=== PATIENT | female | born 1960 | race Caucasian/White ===

== ENCOUNTER → 2016-07-26 | Outpatient (CLI) | payer BC ==
[~2016-07-26] VITALS: Ht 172.7 cm; Wt 62.4 kg
[~2016-07-26] MED LIST: ADRENAL COMPLEX PO; ATIVAN1 MG PO; CALCIUM 500 +1 EAC5 PO; FISH OIL 1,001000 M1 PO; GLUCOSAMINE HC500 MG PO; LAMOTRIGINE150 MG PO; MAGOX 400400 MG PO; NEPHROCAPS SOFT1 CAP PO; PROBIOTIC1 EAC1 PO; TRAMADOL 50 MG50 MG PO; TRAZODONE HCL50 MG PO; ULTRAM 50MG TAB50 MG PO; VITAMIN B-12500 MCG PO; VITAMIN D2000 UNIT PO; VITAMIN E1000 UNI3 PO; ZIPRASIDONE HCL40 MG PO; [UNRECOGNIZED DRUG - OTHER] PO; [UNRECOGNIZED DRUG - OTHER] PO
--- NOTE | ~2016-07-26 | HPC ---
[facility] [place] [address] PAIN MANAGEMENT CONSULTATION Name: SARAH JAMISON Room #: REG CL M.Neymar.#: [id number] Admission: 07/26/16 Attend Phys: Brain Chester DO Discharge: Date of : 60 Report #: [id number] THIS REPORT FOR: //name// CC: HARRIET Smith MD DATE OF SERVICE: 07/26/2016 DATE OF SERVICE: 07/26/2016 CHIEF COMPLAINT: Right buttock and anterior groin and anterior thigh pain. HISTORY OF PRESENT ILLNESS: As you know, the patient is a 56-year-old female referred to our clinic to trial SI joint injections as a right hip injections by Dr. Smith were ineffective. Unfortunately, the patient received no benefit with the SI joint injection provided at the last visit. She returns today in followup visit reporting pain score 3/10. I did indicate to the patient today that she was reporting 100% improvement in overall pain. Upon discharge from our clinic, she states she received no improvement in symptoms. She states her pain is at its typical level. She returns today in followup visit to discuss treatment options. She is quite emotionally labile today, as her symptoms have not been resolved nor has a cause for her symptoms being elucidated. The patient was referred by her orthopedic surgeon to our clinic to trial this SI joint injection. ALLERGIES: No known drug allergies. CURRENT MEDICATIONS: Tramadol 50 mg p.r.n., Blackcurrant 1 tab per day, organic bound mineral 1 tab per day, glucosamine chondroitin 500 mg once a day, cyanocobalamin 500 mcg per day, cholecalciferol 2000 units per day, calcium carbonate 1 tab per day, magnesium 400 mg once a day, lactobacillus 1 tab per day, omega-3 fish oil 1 tab per day, lorazepam 1 mg twice a day, trazodone 50 mg p.o. at bedtime, lamotrigine 150 mg 2 tabs p.o. at bedtime. SOCIAL HISTORY: The patient continues to smoke 1 pack of tobacco per day and has done so for years. Denies IV or illicit drug use. Denies any chronic alcohol use. She is unaccompanied today. IMAGING: No new imaging available. PHYSICAL EXAMINATION: VITAL SIGNS: Blood pressure 94/56, pulse 72, respiratory rate 16, unlabored. The patient 99% on room air. Height 5 feet 8 inches tall, weight 137 pounds, BMI calculated 20.9. [facility] [address] [place] [address] PAIN MANAGEMENT CONSULTATION Name: SARAH JAMISON Room #: REG [facility]#: [id number] Admission: 07/26/16 Attend Phys: Brain Chester DO Discharge: Date of : 60 Report #: [id number] GENERAL: Well-developed, well-nourished, well-hydrated, thin 56-year-old female, smells strongly of tobacco smoke, placing current pain score 3/10. HEENT: Normocephalic, atraumatic. Pupils equal, round, reactive to light. Extraocular muscles are intact. Sclerae are nonicteric. No petechiae. EXTREMITIES: Show no clubbing, no cyanosis, no edema. MUSCULOSKELETAL: Palpatory tenderness is noted again over the right sacroiliac joint. Deep palpation intensifies the patient's pain. Seated straight leg raising negative. Supine straight leg raising negative. Veronica test is negative for any intrinsic hip pathology. Modified Gaenslen's positive for some axial low back pain. ASSESSMENT: 1. Right sacroiliac joint pain. 2. Myofascial pain. 3. Chronic intractable pain. PLAN: 1. The patient returns today in followup visit indicating no improvement in symptoms with the SI joint injection provided at last visit. I did indicate to the patient today that prior to her discharge, she was reporting pain score 0/10. This would indicate there is a possibility that the SI joint is the source of the patient's symptoms and the fact that she did not receive long-term benefit but indicate that she might be a candidate for fusion. I advised the patient at this time, we at [facility] do not provide fusions of the SI joints. She would need to return to see her orthopedic surgeon, Dr. Smith for this process. I recommend strongly the patient return to see Dr. Smith in regards to this fusion process. The fact the patient did receive initial benefit, but no long-term effects would indicate SI joint is the likely source of the patient's symptoms, given the 0/10 score before leaving our clinic after the SI joint procedure. Currently, the lateral branch radiofrequency lesioning that was done on SI joints is classified as an experimental technique and this is no longer offered to the patient. She will need to look for fusion through her orthopedic surgeon's services. Have recommend the patient return to see Dr. Smith as quickly as possible to discuss this option. 2. I have provided the patient with a refill of her tramadol 50 mg dose 1 tab p.o. t.i.d. I have given the patient #90 tablets, 2 refills, which is 3 months worth of medications to give the patient more time to return to see Dr. Smith about the fusion procedure. 3. We will be returning the patient's care to Dr. Smith, the referring physician who requested the SI joint injections. It is unfortunate the patient does not feel she received benefit though she did indicate good improvement initially. She will need to seek a possible fusion through [facility]. <ELECTRONICALLY SIGNED> By: Brain Chester DO 07/27/16 [id number] Brain Chester DO /nt
[2016-07-26 08:15] VITALS: BP 94/56
== END | disposition home or self-care (01) ==
LOC: PAIN 07:10
DX: M53.3 Sacrococcygeal disorders, not elsewhere classified (principal); M79.1 Myalgia; G89.29 Other chronic pain

== ENCOUNTER → 2016-11-23 | Outpatient (CLI) | payer BC ==
[~2016-11-23] VITALS: Ht 172.7 cm; Wt 60.0 kg
[~2016-11-23] MED LIST changes: +DICLOFENAC SOD50 M1 PO
--- NOTE | ~2016-11-23 | HPC ---
[facility] [place] [address] PAIN MANAGEMENT CONSULTATION Name: SARAH JAMISONLEEN Room #: REG [facility] Dank#: [id number] Admission: 11/23/16 Attend Phys: Brain Chester DO Discharge: Date of : 60 Report #: [id number] THIS REPORT FOR: //name// CC: HARRIET Chester Luis RAMIREZ DATE OF SERVICE: 11/23/2016 DATE OF SERVICE: 11/23/2016 CHIEF COMPLAINT: Right hip pain, low back pain, generalized body pain and multiple joint pain. HISTORY OF PRESENT ILLNESS: As you know, the patient is a 56-year-old female, who returns today in followup visit indicating pain level of around 5/10 involving all weightbearing joints, 4/10 generalized body pain. The patient was referred to our clinic specifically by Dr. Smith to undergo injections of the right SI joint. She has undergone this procedure, but did not notice much in the way of improvement in symptoms. She was subsequently referred back to Dr. Smith to discuss the lack of efficacy with the initial injection. She has been lost to follow up visit, returning today, now reporting generalized pain disorder involving all weightbearing joints and continued right hip and buttock pain. She is indicating no injury, no trauma that may have led to symptoms. She states she is quite frustrated with ongoing pain issues. She wishes to discuss options for treatment. ALLERGIES: No known drug allergies. CURRENT MEDICATIONS: Tramadol, Blackcurrant, bone minerals, adrenal complex, glucosamine, cyanocobalamin, vitamin B complex, calcium carbonate, magnesium, lactobacillus, omega 3 fish oil, lorazepam, trazodone, lamotrigine. SOCIAL HISTORY: The patient denies IV or illicit drug use. Continues to smoke 1 pack tobacco per day. She is retired, unaccompanied. IMAGING: No new imaging available. PHYSICAL EXAMINATION: VITAL SIGNS: Blood pressure 114/76, pulse 86, respiratory rate 14, unlabored. The patient is 100% on room air, height 5 feet 8 inches tall, weight 132.2 pounds, BMI calculated 20.1. GENERAL: Well developed, well nourished, well-hydrated 56-year-old female, smells strongly of tobacco smoke, placing current pain score 4-5/10. HEENT: Normocephalic, atraumatic. Pupils equal, round, reactive to light. Extraocular muscles are intact. Sclerae nonicteric, without injection. [facility] [address] [place] [address] PAIN MANAGEMENT CONSULTATION Name: SARAH JAMISON Room #: REG [facility]#: [id number] Admission: 11/23/16 Attend Phys: Brain Chester DO Discharge: Date of : 60 Report #: [id number] EXTREMITIES: Show no clubbing, no cyanosis, no edema. MUSCULOSKELETAL: The patient is tender to palpation of 18/18 tender points indicative of myofascial pain syndrome. She also continues to experience pain over the right SI joint. She indicates pain at this level is intensified with deep palpation. Seated straight leg raising negative. Supine straight leg raising negative. Praveen's test negative. Modified Gaenslen's positive for some axial low back pain, no radiation of symptoms. There is palpatory tenderness over the joints of the ankles, knees, hips, also elbows and shoulders. ASSESSMENT: 1. Myofascial pain syndrome. 2. Right sacroiliac joint dysfunction. 3. Chronic intractable pain. PLAN: 1. The patient returns to our clinic in followup visit, now reporting generalized joint pain and continued right SI joint pain. Given the distribution of symptoms with provocating factors, the lack of any specific injury, I am concerned about either a rheumatologic issue or possibly fibromyalgia. I advised the patient at this time further evaluation through rheumatology would be necessary. We do not have the capabilities of having the patient undergo rheumatologic evaluation through our services. She will need to find a vendor management associate in her area, that can assist in determining this potential source of this widespread generalized pain. I am quite concerned the patient is suffering from fibromyalgia-like symptoms. Unfortunately, there is not a good and consistent way of treating fibromyalgia. I have advised the patient at this time, we will be providing her the diagnosis of myofascial pain disorder, but are strongly considering her symptoms as a fibromyalgia-like syndrome. Further evaluation would be necessary. 2. Recommend strongly the patient, discussed with her primary care physician, referral to Rheumatology. Further evaluation through rheumatology I think would be beneficial though I am fairly confident given the findings on physical exam today. If specific rheumatologic issue is determined, the likely diagnosis will be fibromyalgia or myofascial pain syndrome. Unfortunately, treatment options are limited. We do recommend the patient undergo this full rheumatologic evaluation to rule out any potential resolvable symptoms and problems. 3. Recommend continuing the patient on tramadol 50 mg dose 1 tab p.o. t.i.d. I have given the patient #90 tablets, 2 refills, 3 months' worth of medication. I have advised the patient, we will be providing this on a short time basis if she wishes to continue therapy. She can follow up with her PCP. 4. The patient was provided a prescription of diclofenac 50 mg dose 1 tab p.o. t.i.d. I have given the patient #90 tablets, advised the patient to take this medication consistently for anti-inflammatory effects. This will help with generalized joint pain and body wide pain. She is not to take other nonsteroidal anti-inflammatories with its use. 5. We will see the patient back in followup visit on an as needed basis. At [facility] [address] [place] [address] PAIN MANAGEMENT CONSULTATION Name: SARAH JAMISON Room #: REG Judy Weems#: [id number] Admission: 11/23/16 Attend Phys: Brain Chester DO Discharge: Date of : 60 Report #: [id number] this point, we have nothing or more to offer the patient without more clear definitive diagnoses. I do not feel that SI joint injection requested by Dr. Smith was of benefit. She will need to discuss her ongoing pain issues with Dr. Smith at their followup visit. By: [id number] Brain Chester DO /nt
[2016-11-23 10:41] VITALS: BP 114/76
== END ==
LOC: PAIN 07:07
DX: M25.551 Pain in right hip (principal); M79.1 Myalgia; M54.5 Low back pain

== ENCOUNTER → 2017-04-05 | Outpatient (CLI) | payer BC, OTHER ==
[~2017-04-05] VITALS: Ht 172.7 cm; Wt 63.5 kg
--- NOTE | ~2017-04-05 | HPC ---
[facility] [place] [address] PAIN MANAGEMENT CONSULTATION Name: SARAH JAMISONLEEN [id number] Admission: 04/05/17 Attend Phys: Brain Chester DO Discharge: Date of : 60 Report #: [id number] THIS REPORT FOR: //name// CC: FAM physician/PCP Brain Smith MD DATE OF SERVICE: 04/05/2017 REFERRING PHYSICIAN: Salvador Smith MD CHIEF COMPLAINT: Generalized body pain, right buttock pain, and low back pain. HISTORY OF PRESENT ILLNESS: As you know, the patient is a 57-year-old female who returns today in followup visit with ongoing low back, generalized body pain and right buttock and hip pain. She was referred to our service by her orthopedic surgeon, Dr. Salvador Smith to undergo intra-articular right hip injections, she underwent the injections without improvement in symptoms. We later diagnosed the patient with fibromyalgia, which was confirmed by another physician recently. She continues to experience generalized pain disorder, which exacerbates with stress. We discussed with the patient at last visit the appropriate treatments based on the CDC's recommended guidelines, these would be physical therapy, neuropathic pain medications in the form of Cymbalta, Savella, Lyrica, nortriptyline or Neurontin. We also discussed the contraindication of opioids in fibromyalgia patients, in fact only drug that has shown any efficacy has been tramadol and we did start the patient on that medication. We also discussed cognitive behavioral therapy for which the patient is actively participating in treatment modalities she learned while at the [facility]. She returns today in followup visit to discuss potential changes in therapy. ALLERGIES: No known drug allergies. CURRENT MEDICATIONS: Tramadol, diclofenac, blackcurrant, organic bound minerals, adrenal complex glucosamine chondroitin, cholecalciferol, calcium carbonate, magnesium oxide, lactobacillus, omega-3 fish oil, lorazepam, trazodone, and lamotrigine. SOCIAL HISTORY: The patient continues to smoke. Denies IV or illicit drug use. Denies any chronic alcohol use. She is unaccompanied today. IMAGING: No new imaging available. PHYSICAL EXAMINATION: VITAL SIGNS: Blood pressure 103/59, pulse 84, respiratory rate 20 and unlabored, the patient is 97% on room air, height 5 feet 8 inches tall, weight 140 pounds, and BMI calculated 21.3. [place] [address] PAIN MANAGEMENT CONSULTATION Name: SARAH JAMISONLEEN Room #: REG CLI [facility]#: [id number] Admission: 04/05/17 Attend Phys: Brain Chester DO Discharge: Date of : 60 Report #: [id number] GENERAL: Well-developed, well-nourished, well-hydrated, thin 57-year-old female, appears her stated age, pain is rated at around 6/10. HEENT: Normocephalic, atraumatic. Pupils are equal, round, reactive to light. Extraocular muscles are intact. EXTREMITIES: Show no clubbing, no cyanosis, no edema. MUSCULOSKELETAL: The patient again has tenderness to palpation of 18 tender points indicative of myofascial pain. Seated straight leg raising negative. Supine straight leg raising negative. Veronica's test is negative. ASSESSMENT: 1. Myofascial pain syndrome secondary to fibromyalgia. 2. Mild lumbar facet arthropathy, no radiculopathy. 3. Chronic intractable pain. PLAN: 1. The patient has returned today in followup visit where we have discussed at length the CDC's guidelines for treatment for fibromyalgia. I advised the patient at this time that various professionals in the industry have come up with guidelines for treatment and proposed this to the CDC, this has now become the standard of care. I have discussed with the patient that deviation from standard of care would not be possible, we will be maintaining treatment per the CDC's recommended guidelines. I did discuss with the patient our desire to look towards the neuropathic pain medications in the form of Cymbalta, Savella, Lyrica, nortriptyline or Neurontin, the patient is very concerned about starting these medications given her underlying psychiatric issue. I do understand her concerns about this medication. We have asked the patient to discuss this with her psychiatrist and psychologist, they appear to have indicated they do not wish to make any changes in this therapy. This is unfortunate as ____ of the medications of choice for treatment. We discussed this with the patient today and I did provide the patient with information in regards to treatment options based on CDC's guidelines. 2. The patient has requested of our services to provide Percocet therapy, I have advised the patient at this time opioids are relative contraindication and all information and evidence indicates that opioids do not have any functional improvement with fibromyalgia patients, we will not initiate this medication. We did agree to increase her tramadol from 50 mg 3 times a day to 100 mg 3 times a day. This should provide the patient with better analgesia. Tramadol is the only opioid like medication indicated for treatment per the CDC's recommended guidelines for fibromyalgia treatment. 3. The patient was provided a prescription of tramadol 50 mg dose 2 tabs 3 times a day, #180, release dates of today, 4 weeks from today, 8 weeks from today that is 3 months' worth of medication. 4. The patient and I did discuss at length smoking cessation. Smoking has a direct links to propagation of chronic pain. The patient needs to discontinue this activity, I understand she believes this does "calm her nerves," this is not a reason to continue an activity, which is known to exacerbate her chronic [facility] [address] [place] [address] PAIN MANAGEMENT CONSULTATION Name: SARAH JAMISON Room #: REG SELENE Weems#: [id number] Admission: 04/05/17 Attend Phys: Brain Chester DO Discharge: Date of : 60 Report #: [id number] pain. I have offered the patient different and various ways to come off cigarettes, she indicates at this time this would not be possible. This is unfortunate as we do know there are direct links between smoking and chronic pain and how it affects the nicotinic receptors causing propagation of pain signals. Unfortunately, the patient is unwilling to make adjustments. 5. The patient can return to see her primary care physician or her orthopedic surgeon for continuation of this therapy. Fibromyalgia treatments are typically not handled through chronic pain services as they do not require interventional treatments or more aggressive opioid treatment options that are typical for pain management physicians. She can return to receive tramadol from her PCP or the orthopedic surgeon who referred the patient to our clinic. By: [id number] Brain Chester, DO /nt
[2017-04-05 09:24] VITALS: BP 103/59
== END ==
LOC: PAIN 06:51
DX: M47.896 Other spondylosis, lumbar region (principal); G89.29 Other chronic pain; M79.7 Fibromyalgia; F17.200 Nicotine dependence, unspecified, uncomplicated